=== PATIENT | male | born 1960 | race Caucasian/White ===

== ENCOUNTER 2018-08-30 19:45 | Inpatient (IN) | payer MEDICAID, OTHER ==
[~2018-08-30] VITALS: Ht 182.9 cm; Wt 71.4 kg
--- NOTE | 2018-08-30 20:10 | NUR ---
PT ARRIVED TO ED A&OX4, C/O N/V AND CHEST PAIN AFTER SEIZURE LIKE ACTIVITY REPORTED BY S/O. PT RR EVEN AND UNLABORED. WILL CONTINUE TO MONITOR
[2018-08-30] MEDS ORDERED: SODIUM CHLORIDE FLUSH 10ML SYR IVF ONE (20:30)
[2018-08-30 20:39] LABS: INTERNATIONAL NORMALIZED RATIO 1.16 (0.93-1.1); PROTHROMBIN TIME 12.1 Seconds (9.6-11.5)
[2018-08-30 20:41] LABS: ALANINE AMINOTRANSFERASE 366 U/L (12-78); ALBUMIN 2.9 g/dL (3.4-5.0); ANION GAP 14 mmol/L (5-15); CALCIUM 9.1 mg/dL (8.5-10.1); CHLORIDE 95 mmol/L (98-107); CREATININE 1.04 mg/dL (0.7-1.3)
[2018-08-30 20:44] LABS: ALKALINE PHOSPHATASE 194 U/L (45-117); BILIRUBIN,TOTAL 3.9 mg/dL (0.2-1.0); TOTAL PROTEIN 6.8 g/dL (6.4-8.2)
--- NOTE | 2018-08-30 20:52 | NUR ---
PT TO CT SCAN. NAD. A&OX4.
[2018-08-30] MEDS ORDERED: RIVA20TA PO (20:56)
[2018-08-30] MEDS ORDERED: TRAM50TA2 PO (20:57)
[2018-08-30 21:22] LABS: BASOPHILS # (AUTO) 0.02 x10^3/uL (0-0.1); BASOPHILS % (AUTO) 0 % (0-1); EOSINOPHILS # (AUTO) 0.03 x10^3/uL (0-0.4); EOSINOPHILS % (AUTO) 0 % (1-7); LYMPHOCYTES # (AUTO) 1.13 x10^3/uL (1-3.4); LYMPHOCYTES % (AUTO) 19 % (22-44); MD SCAN; MEAN CORPUSCULAR HEMOGLOBIN 36.5 pg (27.5-34.5); MEAN CORPUSCULAR HGB CONC 34.2 g/dL (33.2-36.2); MEAN CORPUSCULAR VOLUME 106.8 fL (81-97); MEAN PLATELET VOLUME 8.4 fL (7.4-10.4); MONOCYTES # (AUTO) 0.27 x10^3/uL (0.2-0.8); MONOCYTES % (AUTO) 5 % (2-9); NEUTROPHILS # (AUTO) 4.65 x10^3/uL (1.8-6.8); NEUTROPHILS % (AUTO) 76 % (42-75); PLATELET COUNT 86 x10^3/uL (130-400); RED BLOOD COUNT 4.75 x10^6/uL (4.38-5.82); RED CELL DISTRIBUTION WIDTH 15.4 % (9.4-14.8)
[2018-08-30 21:37] LABS: TROPONIN I < 0.015 ng/mL (0.000-0.045)
[2018-08-30] MEDS ORDERED: PLEASE ENTER ALLERGIES MC SCH (22:00)
[2018-08-30] MEDS ORDERED: MAGNESIUM SULFATE 1 GM, THIAMINE 100 MG, FOLIC ACID 1 MG, MVI ADULT 10 ML in SODIUM CHL... IV ONE (22:00)
[2018-08-30] MEDS ORDERED: LORazepam 2 MG/ML, 1ML ONE (22:07)
--- NOTE | 2018-08-30 22:17 | NUR ---
WHILE EDMD AT BEDSIDE EXPLAINING TEST RESULTS PT BEGAN TO HAVE SEIZURE. AIRWAY MAINTAINED. VSS. MD ORDER ATIVAN. WILL CONTINUE TO MONITOR
[2018-08-30] MEDS ORDERED: SODIUM CHLORIDE FLUSH 10ML SYR IVF PRN (22:30)
[2018-08-30] MEDS ORDERED: LORazepam 2 MG/ML, 1ML IVPush ONE (22:30)
--- NOTE | 2018-08-30 22:55 | NUR ---
PT A&OX4, ASKING APPROPRIATE QUESTIONS. MOVES ALL EXTREMITIES. EVEN EQUAL RR.
--- NOTE | 2018-08-30 22:56 | NUR ---
BANANA BAG INFUSION CONTINUING TO INFUSE DURING TRANSFER
[2018-08-30] MEDS ORDERED: DOCUSATE 100 MG CAPSULE PO PRN (23:30)
[2018-08-30] MEDS ORDERED: DIAZEPAM 5 MG/ML, 2ML IV ONE (23:30)
[2018-08-30] MEDS ORDERED: DIPHENHYDRAMINE 50 MG CAPSULE PO PRN (23:30)
[2018-08-30] MEDS ORDERED: ALUMINUM/MAG/SIMETHICONE 30 ML UDC PO PRN (23:30)
[2018-08-30] MEDS ORDERED: LORazepam 2 MG/ML, 1ML IV PRN ×5 (23:30)
[2018-08-30] MEDS ORDERED: PROMETHAZINE 12.5 MG SUPP PR PRN (23:30)
[2018-08-31 00:30] VITALS: BP 131/87
[2018-08-31] MEDS: PANTOPRAZOLE 40 MG IV IVPush SCH ×2 (00:58→08:30)
[2018-08-31 01:33] VITALS: BP 113/76
[2018-08-31 02:11] LABS: TROPONIN I < 0.015 ng/mL (0.000-0.045)
[2018-08-31 07:03] VITALS: BP 118/81
[2018-08-31] MEDS: MULTIVITAMINS/MINERALS TABLET PO SCH (08:30)
[2018-08-31 08:42] LABS: ALANINE AMINOTRANSFERASE 301 U/L (12-78); ALBUMIN 2.6 g/dL (3.4-5.0); ANION GAP 11 mmol/L (5-15); CALCIUM 8.3 mg/dL (8.5-10.1); CHLORIDE 100 mmol/L (98-107); CREATININE 0.59 mg/dL (0.7-1.3)
[2018-08-31 08:47] LABS: ALKALINE PHOSPHATASE 166 U/L (45-117); BILIRUBIN,TOTAL 2.7 mg/dL (0.2-1.0); TOTAL PROTEIN 6.2 g/dL (6.4-8.2); TROPONIN I < 0.015 ng/mL (0.000-0.045)
[2018-08-31 09:16] LABS: BASOPHILS # (AUTO) 0.01 x10^3/uL (0-0.1); BASOPHILS % (AUTO) 0 % (0-1); EOSINOPHILS # (AUTO) 0.03 x10^3/uL (0-0.4); EOSINOPHILS % (AUTO) 1 % (1-7); LYMPHOCYTES # (AUTO) 1.32 x10^3/uL (1-3.4); LYMPHOCYTES % (AUTO) 20 % (22-44); MD SCAN; MEAN CORPUSCULAR HEMOGLOBIN 36.3 pg (27.5-34.5); MEAN CORPUSCULAR VOLUME 106.6 fL (81-97); MEAN PLATELET VOLUME 8.4 fL (7.4-10.4); MONOCYTES # (AUTO) 0.36 x10^3/uL (0.2-0.8); MONOCYTES % (AUTO) 5 % (2-9); NEUTROPHILS # (AUTO) 4.89 x10^3/uL (1.8-6.8); NEUTROPHILS % (AUTO) 74 % (42-75); PLATELET COUNT 80 x10^3/uL (130-400); RED CELL DISTRIBUTION WIDTH 15.2 % (9.4-14.8)
[2018-08-31] MEDS ORDERED: MAALOX/HYOSCYAMINE/LIDOCAINE 45 ML BTL PO PRN (11:30)
[2018-08-31] MEDS ORDERED: LORazepam 1MG TABLET PO PRN ×2 (11:30)
[2018-08-31] MEDS ORDERED: GLUCAGON 1 MG IM PRN (11:30)
[2018-08-31] MEDS ORDERED: MAGNESIUM SULFATE PMX 2GM/50ML 50 ML IV ONE (11:30)
[2018-08-31] MEDS ORDERED: DEXTROSE 4 GM TAB.CHEW PO PRN (11:30)
[2018-08-31] MEDS ORDERED: LORazepam 0.5MG TABLET PO PRN (11:30)
[2018-08-31] MEDS: FOLIC ACID 1 MG TABLET PO SCH (11:30)
[2018-08-31] MEDS ORDERED: DEXTROSE 50%, 50ML SYRINGE IVPush PRN (11:30)
[2018-08-31] MEDS: THIAMINE 100MG TABLET PO SCH (12:04)
[2018-08-31] MEDS: MULTIVIT.W/IRON, MINERALS ORAL SOL PO SCH (12:04)
[2018-08-31 12:31] VITALS: BP 115/72
[2018-08-31 13:32] LABS: HEMOGLOBIN A1C 4.7 % (4.2-6.3)
[2018-08-31 13:40] LABS: THYROID STIMULATING HORMONE 1.45 mIU/L (0.358-3.740)
[2018-08-31] MEDS: POTASSIUM CHLORIDE 20 MEQ TAB.ER.PRT PO SCH (17:08)
[2018-08-31] MEDS: PANTOPRAZOLE 20MG TABLET PO SCH (17:08)
[2018-08-31 18:46] VITALS: BP 133/86
[2018-08-31] MEDS ORDERED: POTASSIUM CHLORIDE 10 MEQ, MVI ADULT 10 ML, FOLIC ACID 1 MG, MAGNESIUM SULFATE 1 GM in ... IV SCH (21:00)
[2018-08-31] MEDS: SODIUM CHLORIDE FLUSH 10ML SYR IVF SCH (21:57)
[2018-09-01 00:53] VITALS: BP 138/93
[2018-09-01 05:57] LABS: MEAN CORPUSCULAR HEMOGLOBIN 36.3 pg (27.5-34.5); MEAN CORPUSCULAR HGB CONC 33.9 g/dL (33.2-36.2); MEAN CORPUSCULAR VOLUME 107.2 fL (81-97); MEAN PLATELET VOLUME 7.8 fL (7.4-10.4); PLATELET COUNT 83 x10^3/uL (130-400); RED CELL DISTRIBUTION WIDTH 15.1 % (9.4-14.8)
[2018-09-01 06:00] LABS: ALBUMIN 2.7 g/dL (3.4-5.0); ANION GAP 6 mmol/L (5-15); CALCIUM 8.6 mg/dL (8.5-10.1); CHLORIDE 97 mmol/L (98-107)
[2018-09-01 06:05] LABS: ALANINE AMINOTRANSFERASE 278 U/L (12-78); ALKALINE PHOSPHATASE 160 U/L (45-117); TOTAL PROTEIN 6.4 g/dL (6.4-8.2)
[2018-09-01 06:19] LABS: BASOPHILS # (AUTO) 0.02 x10^3/uL (0-0.1); BASOPHILS % (AUTO) 0 % (0-1); EOSINOPHILS % (AUTO) 2 % (1-7); LYMPHOCYTES # (AUTO) 1.25 x10^3/uL (1-3.4); LYMPHOCYTES % (AUTO) 25 % (22-44); MD SCAN; MONOCYTES # (AUTO) 0.41 x10^3/uL (0.2-0.8); MONOCYTES % (AUTO) 8 % (2-9); NEUTROPHILS # (AUTO) 3.29 x10^3/uL (1.8-6.8); NEUTROPHILS % (AUTO) 65 % (42-75)
[2018-09-01] MEDS: PANTOPRAZOLE 20MG TABLET PO SCH (06:25)
[2018-09-01 07:15] VITALS: BP 130/90
[2018-09-01] MEDS: FOLIC ACID 1 MG TABLET PO SCH (08:35)
[2018-09-01] MEDS: POTASSIUM CHLORIDE 20 MEQ TAB.ER.PRT PO SCH (08:36)
[2018-09-01] MEDS: THIAMINE 100MG TABLET PO SCH (08:36)
[2018-09-01] MEDS: SODIUM CHLORIDE FLUSH 10ML SYR IVF SCH (08:36)
[2018-09-01] MEDS: MULTIVIT.W/IRON, MINERALS ORAL SOL PO SCH (08:36)
[2018-09-01] MEDS: MULTIVITAMINS/MINERALS TABLET PO SCH (08:36)
[2018-09-01 12:22] VITALS: BP 128/92
[2018-09-01] MEDS ORDERED: THIA100T67 PO (12:39)
[2018-09-01] MEDS ORDERED: MULT-484 PO (12:39)
[2018-09-01] MEDS ORDERED: FOLI-17 PO (12:39)
== END 2018-09-01 14:35 | disposition home or self-care (01) | DRG 432 ==
LOC: ED 22:31 → EDIP 22:47 → 5SO 23:10 → DCLOUNGE 09-01 14:30
PROVIDERS: ADMIT Family Medicine; ATTEND Family Medicine
DX: K70.10 Alcoholic hepatitis without ascites (principal); E43 Unspecified severe protein-calorie malnutrition; F10.230 Alcohol dependence with withdrawal, uncomplicated; R56.9 Unspecified convulsions; Y90.9 Presence of alcohol in blood, level not specified; D69.59 Other secondary thrombocytopenia; D75.89 Other specified diseases of blood and blood-forming organs; E78.5 Hyperlipidemia, unspecified; E83.42 Hypomagnesemia; E87.6 Hypokalemia; F17.200 Nicotine dependence, unspecified, uncomplicated; Z68.21 Body mass index [BMI] 21.0-21.9, adult; I25.2 Old myocardial infarction; A08.4 Viral intestinal infection, unspecified; Z86.711 Personal history of pulmonary embolism
CPT/HCPCS: 36415; 70450; 74021; 76700; 80053; 80074; 82550; 82607; 82962; 83036; 83690; 83735; 84100; 84443; 84484; 85025; 85610; 85730; 93005; 96365; G0378; J3411; J3475; C9113; J2060; J7030